=== PATIENT | male | born 2000 | race Caucasian/White ===

== ENCOUNTER 2020-06-07 13:57 | Emergency (ER) | payer MEDICAID ==
[~2020-06-07] VITALS: Ht 185.4 cm; Wt 69.5 kg
[2020-06-07] MEDS ORDERED: KETOROLAC TROMETHAMINE 10 MG TABLET PO ONE (15:15)
[2020-06-07] MEDS ORDERED: METHOCARBAMOL 500 MG TABLET PO ONE (15:15)
[2020-06-07 16:51] VITALS: BP 105/66
== END 2020-06-07 16:57 | disposition home or self-care (01) ==
LOC: EMS 14:04
DX: S16.1XXA Strain of muscle, fascia and tendon at neck level, initial encounter (principal); S29.012A Strain of muscle and tendon of back wall of thorax, initial encounter; S50.12XA Contusion of left forearm, initial encounter; W22.8XXA Striking against or struck by other objects, initial encounter; Y93.89 Activity, other specified; Y92.89 Other specified places as the place of occurrence of the external cause; Y99.8 Other external cause status
CPT/HCPCS: 99283

== ENCOUNTER 2020-08-27 17:53 | Emergency (ER) | payer MEDICAID ==
[~2020-08-27] VITALS: Ht 182.9 cm; Wt 70.5 kg
[2020-08-27] MEDS ORDERED: SULFAMETHOX/TRIMETH DS 800-160 MG/TABLET PO ONE (19:45)
[2020-08-27] MEDS ORDERED: CEPHALEXIN MONOHYDRATE 500 MG CAPSULE PO ONE (19:45)
[2020-08-27 19:50] VITALS: BP 118/61
== END 2020-08-27 20:21 | disposition home or self-care (01) ==
LOC: EMS 17:54
DX: S60.022A Contusion of left index finger without damage to nail, initial encounter (principal); L08.9 Local infection of the skin and subcutaneous tissue, unspecified; F12.90 Cannabis use, unspecified, uncomplicated; F15.90 Other stimulant use, unspecified, uncomplicated; F17.210 Nicotine dependence, cigarettes, uncomplicated; W59.21XA Bitten by turtle, initial encounter; Y93.89 Activity, other specified; Y92.89 Other specified places as the place of occurrence of the external cause; Y99.8 Other external cause status
CPT/HCPCS: 10140; 99284; 73140-TC; Z7502; Z7610